=== PATIENT | male | born 1945 | race African-American/Black ===

== ENCOUNTER 2020-07-19 17:13 | Emergency (ER) | payer MEDICARE, OTHER ==
[~2020-07-19] VITALS: Ht 193 cm; Wt 96.0 kg
[2020-07-19 17:20] VITALS: BP 143/78
[2020-07-19] MEDS ORDERED: DEXTROSE 50% 25 GM / 50ML DISP.SYRIN. IV ONE ×2 (17:22→17:30)
--- NOTE | 2020-07-19 17:27 | PHYS DOC ---
Past History Past Medical History: Diabetes, Hypertension, Renal Failure (REMY HUNT DO) Adult General Chief Complaint Chief Complaint: ALTERED MENTAL STATUS HPI HPI Patient is a full code, 74-year-old male presenting via EMS for altered mental status. Had a blood sugar of greater than 300 at custodial where he resides when he was administered his typical 32 units fast acting insulin. He was not checked on until later in the day and was found to be unresponsive with a blood sugar of 27. EMS was subsequently called. On arrival, patient was somnolent but protecting his airway, hemodynamically stable with blood sugar of 27. IV a ccess was obtained and a total of 10g D10 administered with improvement in blood sugar to 97 and overall patient mentation. On arrival, patient alert to person and place but not time. POC glucose on arrival was 66. EMS noted there was a decline in mentation since administering last dextrose containing solution. Patient has no recent fever, sick contacts or known complaints. He is an ESRD patient on dialysis attending Monday, and Saturdays with last session being yesterday that was a full complete session without issues (REMY HUNT DO) Review of Systems Review of Systems Fourteen body systems of review of systems have been reviewed. See HPI for pertinent positives and negative responses, other toro all other systems are negative, non-pertinent or non-contributory (REMY HUNT DO) Physical Exam Physical Exam Constitutional: Well developed, somnolent, GCS 14 (E3, V5, M6) HENT: Normocephalic, atraumatic, bilateral external ears normal, oropharynx dry, poor dentition, no oral exudates, nose normal. Eyes: PERRLA, EOMI, conjunctiva normal, no discharge. Neck: Normal range of motion, no tenderness, supple, no stridor. Cardiovascular: Heart rate regular, sinus rhythm, no murmurs rubs or gallops Lungs & Thorax: Bilateral breath sounds clear to auscultation Abdomen: Bowel sounds normal, soft, no tenderness, no masses, no pulsatile masses. Nonsurgical abdomen, no peritoneal signs Skin: Warm, dry, no erythema, no rash. Back: No tenderness, no CVA tenderness. Extremities: No tenderness, no cyanosis, no clubbing, ROM intact, no edema. Left BKA present and well-appearing Neurologic: Alert and oriented X 3, cranial nerves II through XII intact, normal motor & sensory function, no gross focal deficits noted. Psychologic: Flat affect, appears somnolent (REMY HUNT DO) Current Patient Data Vital Signs Vital Signs Date Time Temp Pulse Resp B/P (MAP) Pulse Ox O2 Delivery O2 Flow Rate FiO2 07/19/20 17:20 97.1 69 12 143/78 (99) 90 Vital Signs Date Time Temp Pulse Resp B/P (MAP) Pulse Ox O2 Delivery O2 Flow Rate FiO2 07/19/20 17:20 97.1 69 12 143/78 (99) 90 (REMY HUNT DO) EKG EKG EKG ordered and interpreted by myself at 1722 hrs. as sinus rhythm at 69 bpm, unremarkable intervals, T wave inversions noted in lead aVR otherwise no acute ischemic findings, no STEMI (REMY HUNT DO) Radiology/Procedures Radiology/Procedures [] (REMY HUNT DO) Heart Score C/O Chest Pain: No HEART Score for Chest Pain: HEART Score for Chest Pain Response (Comments) Value History Slighlty/Non-Suspicious 0 ECG Normal 0 Age > 65 2 Risk Factors >3 Risk Factors or Hx CAD 2 Total 4 Risk Factors: Risk Factors: DM, Current or recent (<one month) smoker, HTN, HLP, family history of CAD, obesity. Risk Scores: Risk Factors: DM, Current or recent (<one month) smoker, HTN, HLP, family history of CAD, obesity. (REMY HUNT DO) Course & Med Decision Making Course & Med Decision Making Pertinent Labs and Imaging studies reviewed. (See chart for details) [] (REMY HUNT DO) Course & Med Decision Making See Dr. Hunt note for details prior shift change. Patient's blood sugars remained stable during ED observation. Patient discharge back to custodial. With notation to avoid overcorrection of his episodes of hyperglycemia. Impression: 1. Hypoglycemia after insulin treatment for episodes of hyperglycemia 2. End-stage renal disease-hemodialysis on Tuesdays and Saturdays 3. Hyperkalemia 5.4-normal for patient prior to his hemodialysis (JORGE GUERRERO MD) Dragon Disclaimer Dragon Disclaimer This electronic medical record was generated, in whole or in part, using a voice recognition dictation system. (REMY HUNT DO) Dragon Disclaimer This chart was dictated in whole or in part using Voice Recognition software in a busy, high-work load, and often noisy Emergency Department environment. It may contain unintended and wholly unrecognized errors or omissions. (JORGE GUERRERO MD) REMY HUNT DO Jul 19, 2020 17:27 JORGE GUERRERO MD Jul 20, 2020 12:50
[2020-07-19] MEDS ORDERED: NALOXONE 0.4 MG/ML VIAL. IV ONE (17:30)
--- NOTE | 2020-07-19 17:40 | EKG ---
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
[2020-07-19 17:44] LABS: BASO % 1 % (0-3); EOS # 0.2 x10^3/uL (0.0-0.7); EOS % 4 % (0-3); HEMATOCRIT 28.3 % (39.0-53.0); HEMOGLOBIN 9.6 g/dL (13.0-17.5); LYMPH # 0.9 x10^3/uL (1.0-4.8); LYMPH % 14 % (24-48); MEAN CORPUSCULAR HEMOGLOBIN 30 pg (25-35); MEAN CORPUSCULAR HGB CONC 34 g/dL (31-37); MEAN CORPUSCULAR VOLUME 88 fL (79-100); MONO # 0.7 x10^3/uL (0.0-1.1); MONO % 10 % (0-9); NEUT # 4.7 x10^3uL (1.8-7.7); NEUT % 72 % (31-73); PLATELET COUNT 155 x10^3/uL (140-400); RED CELL DISTRIBUTION WIDTH 15.2 % (11.5-14.5); WHITE BLOOD COUNT 6.5 x10^3/uL (4.0-11.0)
[2020-07-19 17:55] LABS: CALCIUM 7.2 mg/dL (8.5-10.1); CREATININE 7.8 mg/dL (0.7-1.3); GFR 8.3; POTASSIUM 5.4 mmol/L (3.5-5.1)
[2020-07-19 18:01] LABS: ALBUMIN 3.6 g/dL (3.4-5.0); ALBUMIN/GLOBULIN RATIO 0.9 (1.0-1.7); MAGNESIUM 1.9 mg/dL (1.8-2.4); PHOSPHORUS 4.3 mg/dL (2.6-4.7); TOTAL BILIRUBIN 0.6 mg/dL (0.2-1.0); TOTAL PROTEIN 7.6 g/dL (6.4-8.2)
--- NOTE | 2020-07-19 18:25 | RAD ---
Examination: CT head and cervical spine without contrast CT HEAD INDICATION: Altered mental status COMPARISON: None Available. Exposure: One or more of the following individualized dose reduction techniques were utilized for thi s examination: 1. Automated exposure control 2. Adjustment of the mA and/or kV according to patient size 3. Use of iterative reconstruction technique TECHNIQUE: 5 mm contiguous axial images were obtained from the skull base to the vertex in both bone and soft tissue algorithm. FINDINGS: There is mild increased increased hyperdensity identified in the subdural region of the bilateral occ ipital lobes likely acute subdural bleed measuring 2.5 mm in thickness No mass effect or midline shift. Ventricular size is appropriate. Basal cisterns are patent. No fractures identified.De Anda-white differentiation is preserved.Globes and orbits are within normal l imits. Paranasal sinuses and mastoid air cells are clear. CT CERVICAL SPINE INDICATION: Altered mental status: COMPARISON: None Available. Technique: 2.5 mm contiguous axial images were obtained from the skull base through the cervicothorac ic junction in both bone and soft tissue algorithm. Additional sagittal and coronal reconstructions were also performed. FINDINGS: Vertebral body height and alignment are maintained. Cervical lordosis is preserved. The l ateral masses of C1 are aligned upon C2. No fractures identified. The bony canal is patent throughout. Moderate degenerative disc height loss identified in cervical spine most at C5-C6 vertebral levels wi th large anterior osteophyte formation identified at C5, C6, C7 vertebral levels. The bilateral facet s are well aligned. The paraspinous soft tissues are unremarkable. . Lung apices are clear. IMPRESSION: 1. Small bilateral occipital subdural acute bleed. 2. No acute fracture cervical spine. Correlate clinically. 3. Moderate degenerative changes cervical spine. Electronically signed by: Hair Rodriguez MD (07/19/2020 6:22 PM) [id number]
--- NOTE | 2020-07-19 20:06 | RAD ---
Examination: Single frontal view of the chest and frontal view the pelvis HISTORY: History of fall COMPARISON: None available Findings/ impression: Mild cardiomegaly. There is a 5.7 cm opacity projecting in the upper lobe of the lung could be an opa city in the lung or osseous density in the chest wall. Mild bibasilar lung atelectasis or infiltrates . The bilateral femoral heads within the acetabulum. 1.6 cm density projects over the left sacral reg ion could be metallic density. Mild degenerative changes bilateral hip joint. Partially visualized fe mahesh and gas identified in the colon. Electronically signed by: Hair Rodriguez MD (07/19/2020 8:03 PM) [id number]
== END 2020-07-20 01:17 | disposition home or self-care (01) ==
LOC: ER 17:13
DX: I12.0 Hypertensive chronic kidney disease with stage 5 chronic kidney disease or end stage renal disease (principal); E11.22 Type 2 diabetes mellitus with diabetic chronic kidney disease; N18.6 End stage renal disease; E11.65 Type 2 diabetes mellitus with hyperglycemia; E11.649 Type 2 diabetes mellitus with hypoglycemia without coma; E87.5 Hyperkalemia; Z99.2 Dependence on renal dialysis
CPT/HCPCS: 36415; 70450; 71045; 72125; 72170; 80053; 82947; 83605; 83735; 84100; 84484; 85025; 93005; 96374; 96375; 99285; J2310

== ENCOUNTER 2020-07-28 15:18 | Observation (INO) | payer MEDICARE, OTHER ==
[~2020-07-28] VITALS: Ht 193 cm; Wt 94.2 kg
[2020-07-28] MEDS ORDERED: DEXTROSE 50% 25 GM / 50ML DISP.SYRIN. IV ONE (15:22)
[2020-07-28] MEDS ORDERED: IV DEXTROSE 10% 1,000 ML IV ONE (15:30)
--- NOTE | 2020-07-28 15:34 | PHYS DOC ---
Past History Past Medical History: Diabetes, Hypertension, Renal Failure Additional Past Medical Histor: Neuropathy Past Surgical History: Other Additional Past Surgical Histo: LBKA Alcohol Use: None General Adult EDM: Chief Complaint: NEURO SYMPTOMS/DEFICITS HPI: HPI: Patient is a 74-year-old male who was brought here from the dialysis center for altered mental status. Patient had end-stage renal failure, he was at dialysis today at 10:00 am for hemodialysis. After he was done with the dialysis, staff says he was acting confused, when they stood him up he could not walk to his wheelchair. EMS were called, they found him to be unresponsive to pain or verbal stimuli, they could not put an IV in him but able to get an Accu-Chek and it was 58. They applied oxygen, and his saturation was 97% on 2 L. Arrival to ER, patient was unresponsive to verbal or painful stimuli. A stat blood sugar check showed that his blood sugar was 18. Review of Systems: Review of Systems: Not able to evaluate due to condition Current Medications: Current Meds: Current Medications Medications (Trade) Dose Ordered Sig/Rola Start Time Stop Time Status Last Admin Dose Admin Dextrose 1,000 ml @ 100 mls/hr 1X ONCE 07/28/20 15:30 07/29/20 01:29 Dextrose (Dextrose 50%-Water Syringe) 25 gm STK-MED ONCE 07/28/20 15:22 07/28/20 15:22 DC Allergies: Allergies: Allergies Coded Allergies Type Severity Reaction Last Updated Verified No Known Drug Allergies 07/19/20 No Physical Exam: PE: Constitutional: Well developed, well nourished, unresponsive to pain or verbal stimuli HENT: Normocephalic, atraumatic, bilateral external ears normal, oropharynx moist, no oral exudates, nose normal. [] Eyes: PERRLA, conjunctiva normal, no discharge. [] Neck: Normal range of motion, no tenderness, supple, no stridor. [] Cardiovascular:Heart rate regular rhythm, no murmur [] Lungs & Thorax: Bilateral breath sounds clear to auscultation [] Abdomen: Bowel sounds normal, soft, no tenderness, no masses, no pulsatile masses. [] Skin: Warm, dry, no erythema, no rash. [] Back: No tenderness, no CVA tenderness. [] Extremities: No tenderness, no cyanosis, no clubbing, left BKA,). Neurologic: Unresponsive to verbal and painful stimuli Psychologic: Not able to evaluate due to unresponsiveness. Current Patient Data: Labs: Laboratory Tests Test 07/28/20 15:25 07/28/20 16:11 White Blood Count 7.9 x10^3/uL Red Blood Count 3.48 x10^6/uL Hemoglobin 10.5 g/dL Hematocrit 29.9 % Mean Corpuscular Volume 86 fL Mean Corpuscular Hemoglobin 30 pg Mean Corpuscular Hemoglobin Concent 35 g/dL Red Cell Distribution Width 15.5 % Platelet Count 163 x10^3/uL Neutrophils (%) (Auto) 74 % Lymphocytes (%) (Auto) 12 % Monocytes (%) (Auto) 12 % Eosinophils (%) (Auto) 2 % Basophils (%) (Auto) 0 % Neutrophils # (Auto) 5.9 x10^3uL Lymphocytes # (Auto) 0.9 x10^3/uL Monocytes # (Auto) 1.0 x10^3/uL Eosinophils # (Auto) 0.1 x10^3/uL Basophils # (Auto) 0.0 x10^3/uL Sodium Level 138 mmol/L Potassium Level 4.4 mmol/L Chloride Level 96 mmol/L Carbon Dioxide Level 32 mmol/L Anion Gap 10 Blood Urea Nitrogen 35 mg/dL Creatinine 5.6 mg/dL Estimated GFR (Cockcroft-Gault) 12.2 BUN/Creatinine Ratio 6 Glucose Level 30 mg/dL Lactic Acid Level 1.0 mmol/L Calcium Level 7.3 mg/dL Magnesium Level 1.9 mg/dL Total Bilirubin 0.6 mg/dL Aspartate Amino Transf (AST/SGOT) 20 U/L Alanine Aminotransferase (ALT/SGPT) 18 U/L Alkaline Phosphatase 98 U/L Troponin I Quantitative < 0.017 ng/mL Total Protein 8.1 g/dL Albumin 3.6 g/dL Albumin/Globulin Ratio 0.8 Glucose (Fingerstick) 105 mg/dL Current Medications Medications (Trade) Dose Ordered Sig/Rola Route PRN Reason Start Time Stop Time Status Last Admin Dose Admin Dextrose (Dextrose 50%-Water Syringe) 25 gm STK-MED ONCE IV 07/28/20 15:22 07/28/20 15:22 DC Dextrose 1,000 ml @ 100 mls/hr 1X ONCE IV 07/28/20 15:30 4/14/21 01:29 07/28/20 15:37 EKG: EKG: EKG was done at 1522, heart rate of 71 bpm, sinus rhythm, no ST segment elevation , normal EKG, normal axis Radiology/Procedures: Radiology/Procedures: [] Heart Score: C/O Chest Pain: N/A Risk Factors: Risk Factors: DM, Current or recent (<one month) smoker, HTN, HLP, family history of CAD, obesity. Risk Scores: Score 0 - 3: 2.5% MACE over next 6 weeks - Discharge Home Score 4 - 6: 20.3% MACE over next 6 weeks - Admit for Clinical Observation Score 7 - 10: 72.7% MACE over next 6 weeks - Early Invasive Strategies Course & Med Decision Making: Course & Med Decision Making Pertinent Labs and Imaging studies reviewed. (See chart for details) Patient is a 74-year-old male who was brought here by EMS from the dialysis center due to unresponsiveness. His blood sugar was 18 upon arrival to ER. Patient was given 1 amp of D50, patient woke up slowly, become more awake alert oriented. Patient said he went to dialysis this morning and did not eat breakfast. Patient has diabetic, is on insulin. Patient said he was at dialysis and 9:30 AM this morning. Patient denied headache, no chest pain, no abdominal pain, no nausea vomiting. Patient was given juice to drink and sandwich to eat in ER. His blood sugar improved to 105. D10 drip was started. Patient said he lives at the [facility]. Patient will be admitted to hospital for observation overnight. Discussed with Dr. Merritt who agrees to admit the patient Dragon Disclaimer: Magy Disclaimer: This electronic medical record was generated, in whole or in part, using a voice recognition dictation system. Departure Departure: Impression: Primary Impression: Hypoglycemia Disposition: ADMITTED INPATIENT Admitting Physician: Solo Merritt Condition: IMPROVED Referrals: SANG WOOD (PCP) PEDRITO LIRA DO Jul 28, 2020 15:34
--- NOTE | 2020-07-28 15:42 | EKG ---
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
[2020-07-28 15:47] LABS: BASO % 0 % (0-3); EOS # 0.1 x10^3/uL (0.0-0.7); EOS % 2 % (0-3); HEMATOCRIT 29.9 % (39.0-53.0); HEMOGLOBIN 10.5 g/dL (13.0-17.5); LYMPH # 0.9 x10^3/uL (1.0-4.8); LYMPH % 12 % (24-48); MEAN CORPUSCULAR HEMOGLOBIN 30 pg (25-35); MEAN CORPUSCULAR HGB CONC 35 g/dL (31-37); MEAN CORPUSCULAR VOLUME 86 fL (79-100); MONO % 12 % (0-9); NEUT # 5.9 x10^3uL (1.8-7.7); NEUT % 74 % (31-73); PLATELET COUNT 163 x10^3/uL (140-400); RED BLOOD COUNT 3.48 x10^6/uL (4.30-5.70); RED CELL DISTRIBUTION WIDTH 15.5 % (11.5-14.5); WHITE BLOOD COUNT 7.9 x10^3/uL (4.0-11.0)
[2020-07-28 16:06] LABS: ALBUMIN 3.6 g/dL (3.4-5.0); ALBUMIN/GLOBULIN RATIO 0.8 (1.0-1.7); CALCIUM 7.3 mg/dL (8.5-10.1); CREATININE 5.6 mg/dL (0.7-1.3); GFR 12.2; MAGNESIUM 1.9 mg/dL (1.8-2.4); POTASSIUM 4.4 mmol/L (3.5-5.1); TOTAL BILIRUBIN 0.6 mg/dL (0.2-1.0); TOTAL PROTEIN 8.1 g/dL (6.4-8.2)
[2020-07-28] MEDS ORDERED: ONDANSETRON PF 4 MG/2 ML VIAL. IVP PRN (17:15)
[2020-07-28 19:57] VITALS: BP 180/90
[2020-07-28] MEDS ORDERED: METH-38 PO (21:30)
[2020-07-28] MEDS ORDERED: INSU100V31 SQ (21:30)
[2020-07-28] MEDS ORDERED: OMEG1CAP68 PO (21:30)
[2020-07-28] MEDS ORDERED: CHOL500021 PO (21:30)
[2020-07-28] MEDS ORDERED: TAMS0.4C97 PO (21:30)
[2020-07-28] MEDS ORDERED: CALC200T3 PO (21:30)
[2020-07-28] MEDS ORDERED: CARV12.5 PO (21:30)
[2020-07-28] MEDS ORDERED: FOLI0.8T21 PO (21:30)
[2020-07-28] MEDS ORDERED: ATOR40TA59 PO (21:30)
[2020-07-28] MEDS ORDERED: CLOP75TA PO (21:30)
[2020-07-28] MEDS: CARVEDILOL 12.5 MG TABLET PO SCH (21:52)
[2020-07-28] MEDS ORDERED: CALCIUM CARBONATE 500 MG TAB.CHEW PO SCH (22:00)
[2020-07-28 23:03] VITALS: BP 154/73
--- NOTE | 2020-07-29 00:24 | NUR ---
PT admitted for hypoglycemic episode at dialysis. PT with normal glucose at time of admission. Reviewed with PT his PMH, PSH, SH, FH, and medications. PT oriented to unit.
[2020-07-29 03:25] VITALS: BP 135/68
[2020-07-29 05:40] VITALS: BP 149/73
--- NOTE | 2020-07-29 06:44 | NUR ---
Update provided to Castillo HERNÁNDEZ at 0630.
[2020-07-29] MEDS ORDERED: INSULIN LISPRO 300 UNITS/3 ML VIAL. SQ SCH (08:00)
[2020-07-29 08:59] VITALS: BP 149/73
[2020-07-29] MEDS: CARVEDILOL 12.5 MG TABLET PO SCH (08:59)
[2020-07-29] MEDS ORDERED: CLOPIDOGREL BISULFATE 75 MG TABLET PO SCH (09:00)
[2020-07-29] MEDS ORDERED: FOLIC/VIT B COMP W-C (RENAL) TABLET. PO SCH (09:00)
[2020-07-29] MEDS ORDERED: OMEGA-3 FATTY ACIDS/FISH OIL 1,000 MG CAPSULE. PO SCH (09:00)
[2020-07-29] MEDS ORDERED: CHOLECALCIFEROL (VITAMIN D3) 1,000 UNIT TABLET PO SCH (09:00)
--- NOTE | 2020-07-29 09:43 | HP ---
ADMIT DATE: 07/28/2020 ATTENDING PHYSICIAN: Dr. Arshad. CHIEF COMPLAINT: Altered mentation. HISTORY OF PRESENT ILLNESS: The patient is a 74-year-old gentleman who undergoes maintenance hemodialysis Tuesdays, and Saturdays at [facility]. His weight was up. They are in the process of almost completing his run. He became obtunded. Blood sugar was 58. He is insulin-dependent diabetic. He was sent here for altered mentation and hypoglycemia related to his diabetes. A repeat blood sugar initially was only 18 mg/dL. He was given stat glucose and started on IV hydration. PAST MEDICAL HISTORY: Significant for end-stage renal failure on maintenance hemodialysis on Tuesdays, and Saturdays. He has significant peripheral vascular disease resulting in a left bztxe-top-elza amputation with a prosthesis. He also has hyperlipidemia, hypertension and type 2 diabetes. CURRENT MEDICATIONS: Include Lipitor, calcium, Coreg, cholecalciferol, Plavix, folic acid, regular Lantus insulin, Robaxin, omega 3 fish oil and Flomax. ALLERGIES: He has no known drug allergies. SOCIAL HISTORY: Former smoker, questionable alcohol use. FAMILY HISTORY: Noncontributory. REVIEW OF SYSTEMS: Significant for obtundation. He does not remember what happened. He is in no pain. All other systems reviewed and turned to be negative. PHYSICAL EXAMINATION: GENERAL: When I saw him, this is a pleasant gentleman who appears chronically ill. INITIAL VITAL SIGNS: Showed a blood pressure 135/68, pulse is 73 and regular. He was afebrile, oxygen saturation 94% on room air. HEENT: Head is without trauma. Pupils are reactive. Sclerae are nonicteric. Oropharynx is clear. NECK: Supple, no bruits. LUNGS: Clear to auscultation. CARDIOVASCULAR: Showed regular heart tones. No rubs or murmurs. There is a noticeable keloid scars on the anterior chest over the sternum. ABDOMEN: Soft, obese, protuberant. No organomegaly. EXTREMITIES: Show no cyanosis. 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 The left extremity has a pexqv-mzq-toxy amputation. The stump is clean without any lesions. SKIN: Otherwise warm and dry. PERTINENT LABORATORY STUDIES: In the ED, initial blood sugar was 18, repeated throughout the hospitalization and was up to 110, 192, 102 and 132. Insulin has been held. Hemoglobin is maintained at 10.5 g/dL with white count of 7900. Chemistries on admission, creatinine was 5.6 mg/dL, BUN 35, potassium is 4.4 mEq. Troponins were negative. ASSESSMENT: 1. This 74-year-old gentleman has symptomatic profound hypoglycemia post dialysis. 2. Insulin-dependent diabetes mellitus. 3. Peripheral vascular disease. 4. Previous amputation. 5. Generalized debilitation. 6. Hypertension. PLAN: 1. Observation status. 2. Insulin was held. 3. Frequent glucometer. 4. Dextrose as ordered. 5. Continue home meds. LIZY ARSHAD MD DR: RAKESH/neftaly JOB#: [id number] / [id number]
--- NOTE | 2020-07-29 13:13 | DS ---
DATE OF DISCHARGE: 07/29/2020 FINAL DISCHARGE DIAGNOSES: 1. Hypoglycemia, resolved. 2. Altered mentation, resolved. 3. End-stage renal failure, on maintenance Monday, , Monday hemodialysis. 4. Hypertension. 5. Peripheral vascular disease. 6. Previous left BKA amputation. 7. Peripheral neuropathy. HISTORY AND PHYSICAL: This is a 74-year-old gentleman sent here from dialysis clinic. He was hypoglycemic. He is diabetic. Did not eat enough. Blood sugars were initially 18 mg/dL. Dextrose administered. He was admitted overnight for observation. PHYSICAL EXAMINATION: Please see the dictated note. PERTINENT LABORATORY AND X-RAY STUDIES: Initial glucose 18, repeated was 30, then gradually came up to the low 100s, hemoglobin was 10.5 g/dL, white count of 7900. Blood sugars were adequate, potassium 4.4 mEq per liter. COURSE IN THE HOSPITAL: The patient was admitted overnight for observation. He was given dextrose solution, frequent Accu-Cheks showed improvement of blood sugars and his insulin was held. By the next hospital day, he was alert and oriented. Blood sugars were in the mid 100s, blood pressure and vital signs were stable. He was alert. He was ready to go back for further dialysis. He has volume overload, may need to do another ____, therefore he is discharged by ambulance to go back to the dialysis clinic. Home meds remains unchanged. He will continue his atorvastatin, calcium, Coreg, cholecalciferol, Plavix, folic acid, insulin regular and Lantus, Robaxin, omega 3 fish oil and Flomax dose is unchanged. The patient was then discharged from our hospital in stable condition with explicit instructions and followup care. LIZY ARSHAD MD DR: RAKESH/neftaly JOB#: [id number] / [id number]
[2020-07-29] MEDS ORDERED: METHOCARBAMOL 500 MG TABLET PO SCH (21:00)
[2020-07-29] MEDS ORDERED: ATORVASTATIN CALCIUM 20 MG TABLET PO SCH (21:00)
[2020-07-29] MEDS ORDERED: TAMSULOSIN 0.4 MG CAP.ER.24H. PO SCH (21:00)
== END 2020-07-29 10:10 ==
LOC: ER 15:18 → ICU 17:13
PROVIDERS: ADMIT Internal Medicine; ATTEND Internal Medicine
DX: E11.649 Type 2 diabetes mellitus with hypoglycemia without coma (principal); I73.9 Peripheral vascular disease, unspecified; I12.0 Hypertensive chronic kidney disease with stage 5 chronic kidney disease or end stage renal disease; N18.6 End stage renal disease; E11.22 Type 2 diabetes mellitus with diabetic chronic kidney disease; E78.5 Hyperlipidemia, unspecified; E87.70 Fluid overload, unspecified; E11.51 Type 2 diabetes mellitus with diabetic peripheral angiopathy without gangrene; G62.9 Polyneuropathy, unspecified; R53.81 Other malaise; Z79.4 Long term (current) use of insulin; Z87.891 Personal history of nicotine dependence; Z89.512 Acquired absence of left leg below knee; Z99.2 Dependence on renal dialysis; Z79.02 Long term (current) use of antithrombotics/antiplatelets
CPT/HCPCS: 36415; 80053; 82947; 83605; 83735; 84484; 85025; 87040; 87077; 87205; 93005; 96360; 96361; 99284; G0378; G0379; J1815